=== PATIENT | female | born 1965 | race Caucasian/White ===

== ENCOUNTER → 2018-09-28 | Outpatient (CLI) | payer BC ==
--- NOTE | 2018-10-04 10:54 | MM ---
Reason for exam: screening (asymptomatic). Last mammogram was performed 1 year and 1 month ago. History: Patient is postmenopausal. Physical Findings: A clinical breast exam by your physician is recommended on an annual basis and results should be correlated with mammographic findings. MG 3D Screening Mammo W/Cad Bilateral CC and MLO view(s) were taken. Prior study comparison: August 24, 2017, bilateral MG 3d screening mammo w/cad. July 17, 2016, bilateral MG screening mammo w CAD. The breast tissue is heterogeneously dense. This may lower the sensitivity of mammography. No suspicious abnormality. No significant changes when compared with prior studies. ASSESSMENT: Negative, BI-RAD 1 RECOMMENDATION: Routine screening mammogram of both breasts in 1 year.
== END | disposition home or self-care (01) ==
LOC: RADMAMWWP 07:12
PROVIDERS: ATTEND Obstetrics & Gynecology
DX: Z12.31 Encounter for screening mammogram for malignant neoplasm of breast (principal)
CPT/HCPCS: 77063; 77067

== ENCOUNTER → 2019-09-27 | Outpatient (CLI) | payer BC ==
--- NOTE | 2019-09-27 13:06 | EST ---
EXERCISE STRESS DATE OF SERVICE: 09/27/2019 AGE: 53 SEX: Female HT: 5'0" WT: 130 PROTOCOL: Papa Cardiolite STAGE: III DURATION OF EXERCISE: 8-1/2 minutes HEART RATE REST: 64 BLOOD PRESSURE REST: 151/90 MAXIMUM HEART RATE ACHIEVED: 149 MAXIMUM BLOOD PRESSURE: 167/78 85% MPHR: 144 100% MPHR: 169 METS: 9.1 INDICATIONS: Chest pain. CLINICAL INFORMATION: Baseline EKG revealed normal sinus rhythm with nonspecific ST abnormality in inferolateral leads. Patient walked for 8-1/2 minutes achieved a maximal heart rate of 149 beats per minute which is more than 85% of predicted maximal. Developed fatigue and shortness of breath. More prominent ST-segment changes were noted, but these are considered inconclusive findings because of resting changes and LVH. The patient did not have angina. There was no arrhythmia. By EKG criteria, this is an inconclusive stress test with fair exercise capacity. The nuclear scan results which are more pertinent, will be reported by the radiologist. MMSHARIFL / IJN: [id number] /
--- NOTE | 2019-09-27 13:11 | NM ---
EXAMINATION TYPE: NM stress cardiolite complete DATE OF EXAM: 09/27/2019 COMPARISON: NONE HISTORY: Chest pain TECHNIQUE: After the intravenous administration of 10 mCi Tc 99m Sestamibi - Rest images obtained 50 minutes post injection. The patient exercised using a ROSELYN protocol and 1 minute prior to peak ex ercise was injected with 28.1 mCi Tc 99m Sestamibi - Stress images obtained 50 minutes post injection . FINDINGS: Targeted heart rate was achieved during performance of the study. Review of stress and rest SPECT ciarra ges demonstrates no distinct perfusion abnormality. Gated analysis shows paradoxical apical septal w all motion with an estimated left ventricular ejection fraction of 66 %. IMPRESSION: No scintigraphic evidence for reversible ischemia. Correlate with echo for possible wall motion abnor mality, elevated ejection fraction
== END | disposition home or self-care (01) ==
LOC: RADNMMAIN 08:26
PROVIDERS: ATTEND Internal Medicine
DX: R07.9 Chest pain, unspecified (principal)
CPT/HCPCS: 93017; 78452; A9500

== ENCOUNTER → 2019-10-05 | Outpatient (CLI) | payer BC ==
--- NOTE | 2019-10-05 13:13 | MM ---
Reason for exam: screening (asymptomatic). Last mammogram was performed 1 year ago. History: Patient is postmenopausal. Physical Findings: A clinical breast exam by your physician is recommended on an annual basis and results should be correlated with mammographic findings. MG Screening Mammo w CAD Bilateral CC and MLO view(s) were taken. Prior study comparison: September 28, 2018, bilateral MG 3d screening mammo w/cad. August 24, 2017, bilateral MG 3d screening mammo w/cad. The breast tissue is heterogeneously dense. This may lower the sensitivity of mammography. Focal asymmetry left lower inner quadrant posterior. This finding is changed when compared with previous exams. ASSESSMENT: Incomplete: need additional imaging evaluation, BI-RAD 0 RECOMMENDATION: Special view mammogram of the left breast. If lesion persists on supplemental views, image directed ultrasound is recommended. [facility] will attempt to contact patient to return for supplemental views and ultrasound if indicated.
== END | disposition home or self-care (01) ==
LOC: RADMAMWWP 07:24
PROVIDERS: ATTEND Obstetrics & Gynecology
DX: Z12.31 Encounter for screening mammogram for malignant neoplasm of breast (principal)
CPT/HCPCS: 77067

== ENCOUNTER → 2019-10-21 | Outpatient (CLI) | payer BC ==
--- NOTE | 2019-10-21 09:53 | MM ---
Reason for exam: additional evaluation requested from abnormal screening. Last mammogram was performed 1 month ago. History: Patient is postmenopausal. Physical Findings: Nurse did not find any significant physical abnormalities on exam. MG 3D Work Up W/Cad LT Spot compression CC, spot compression MLO, and LM view(s) were taken of the left breast. Prior study comparison: October 05, 2019, bilateral MG screening mammo w CAD. September 28, 2018, bilateral MG 3d screening mammo w/cad. The breast tissue is heterogeneously dense. This may lower the sensitivity of mammography. The previously seen abnormality resolves on additional views and appears as fibroglandular tissue compatible with summation. These results were verbally communicated with the patient and result sheet given to the patient on 10/21/19. ASSESSMENT: Negative, BI-RAD 1 RECOMMENDATION: Return to routine screening mammogram schedule for both breasts.
== END | disposition home or self-care (01) ==
LOC: RADMAMWWP 08:52
PROVIDERS: ATTEND Obstetrics & Gynecology
DX: R92.8 Other abnormal and inconclusive findings on diagnostic imaging of breast (principal)
CPT/HCPCS: 77061; 77065

== ENCOUNTER → 2020-09-07 | Outpatient (CLI) | payer BC ==
[2020-09-07 11:31] LABS: HCT 43.5 % (34.0-46.0); HGB 14.2 gm/dL (11.4-16.0); MCH 32.1 pg (25.0-35.0); MCHC 32.6 g/dL (31.0-37.0); MCV 98.5 fL (80.0-100.0); Mean Platelet Volume 7.1; Platelet Count 310 k/uL (150-450); RBC 4.42 m/uL (3.80-5.40); RDW 12.3 % (11.5-15.5); WBC 5.8 k/uL (3.8-10.6)
[2020-09-07 11:49] LABS: African American GFR (CKD) >90 (>60 ml/min/1.73 sqM); Anion Gap 9 mmol/L; Blood Urea Nitrogen 13 mg/dL (7-17); Carbon Dioxide 27 mmol/L (22-30); Chloride 100 mmol/L (98-107); Non-African American GFR(CKD) >90 (>60 ml/min/1.73 sqM); Potassium 4.3 mmol/L (3.5-5.1); Sodium 136 mmol/L (137-145)
== END | disposition home or self-care (01) ==
LOC: LABPAT 10:38
PROVIDERS: ATTEND Internal Medicine Interventional Cardiology
DX: Z01.818 Encounter for other preprocedural examination (principal); R06.02 Shortness of breath
CPT/HCPCS: 80051; 82565; 84520; 85027

== ENCOUNTER 2020-09-14 09:16 | Day surgery (SDC) | payer BC ==
[2020-09-13 11:33] VITALS: BMI 26.4
[~2020-09-14 09:16] MED LIST: ALPRAZolam 0.25 MG TAB PO PRN; ALPRAZolam 0.5 MG TAB PO PRN; ASPIRIN 325 MG TAB PO STA; ATORVASTATIN 80 MG TAB PO STA; NITROGLYCERIN SL TABS 0.4 MG TAB SUBLINGUAL PRN; SODIUM CHLORIDE 0.9% 1,000 ML in EMPTY BAG 1 BAG IV ONE
[2020-09-14 10:07] VITALS: RESP 18; TEMP 98.4
[2020-09-14] MEDS ORDERED: LIDOCAINE 1% INJ 10MG/ML (20 ML MDV) ONE (10:26)
[2020-09-14] MEDS ORDERED: VERAPAMIL 2.5 MG/ML 2 ML AMP ONE (10:26)
[2020-09-14] MEDS ORDERED: HEPARIN SODIUM 1,000 UN/ML (10ML VL) ONE (10:27)
[2020-09-14] MEDS: MIDAZOLAM 2 MG/2 ML VIAL IV ONE ×2 (10:36→10:43)
[2020-09-14] MEDS: LIDOCAINE 1% INJ 10MG/ML (20 ML MDV) SQ ONE ×2 (10:40→10:54)
[2020-09-14] MEDS ORDERED: HYDROmorphone 0.5 MG/0.5 ML SYRINGE IVP ONE (10:51)
[2020-09-14] MEDS ORDERED: fentaNYL (PF) 50 MCG/ML 2 ML AMP ONE (10:54)
[2020-09-14] MEDS ORDERED: fentaNYL (PF) 50 MCG/ML 2 ML AMP IV ONE (10:55)
[2020-09-14] MEDS ORDERED: IOPAMIDOL-370 100ML BTL INJ ONE (11:07)
[2020-09-14] MEDS ORDERED: SODIUM CHLORIDE 0.9% 1,000 ML IV SCH (11:15)
--- NOTE | 2020-09-14 13:16 | CC ---
CARDIAC CATHETERIZATION REPORT DATE OF SERVICE: September 14, 2020. PROCEDURE: Left heart catheterization and coronary angiography. PERFORMED BY: Dr. Senia Eduardo. SEDATION: Moderate conscious sedation time was 27 minutes. Patient was administered Versed. Oxygen saturation, hemodynamics and EKG were monitored closely. CLINICAL INFORMATION: Mrs. Ashleigh Bustos is a 54-year-old lady with a history of CAD, previous cardiac cath in 2013, which revealed noncritical CAD. Because of significant symptoms of angina, she came into the office complaining of pain even with [id number] activity and therefore she was advised cardiac cath after due discussion regarding risks, benefits, and options. PROCEDURE NOTE: Under local anesthesia and strict aseptic precautions, a 6-Icelandic introducer was advanced very carefully. I had some difficulty getting access from the right radial. I used a micropuncture technique. With this, I was able to advance the introducer but I could not advance the sheath because of severe spasm and therefore I took the sheath out and applied a TR band with good saturation of the fingers of 95%. I then turned my attention to the right femoral approach. Under local anesthesia and strict aseptic precautions, a 6-Icelandic introducer was placed in the right femoral artery with a micropuncture needle technique. Using standard Cathryn catheters, I performed coronary angiography and the same right catheter was used to check LV pressure but LV gram was not performed. The sheath was taken out and Angio-Seal device used to secure hemostasis. The patient was sent to the room in a stable condition. Findings were discussed with the patient and her . CARDIAC CATHETERIZATION FINDINGS: Left ventricular end-diastolic pressure was 10 mmHg without any gradient across the aortic valve. CORONARY ANGIOGRAPHY FINDINGS: RIGHT CORONARY ARTERY: Large dominant vessel. No significant disease, distally bifurcates into small PLV large PDA. No significant disease. Minor irregularities noted. LEFT MAIN CORONARY ARTERY: Short, patent vessel seems to be of the same caliber as the LAD and circumflex, but no significant disease. Bifurcates into LAD and circumflex. LEFT ANTERIOR DESCENDING CORONARY ARTERY: Good caliber vessel extends along the anterior wall. There is a narrowing of about 30% to 35% in the midportion gives off 2 diagonal branches, several septal branches, runs all the way to the apex supplies a sizable amount of myocardium. There is a 35% stenosis in the mid LAD noted which is similar to the previous finding from 2013. LEFT POSTERIOR CIRCUMFLEX CORONARY ARTERY: Nondominant vessel gives off a good-sized obtuse marginal that runs laterally and then the vessel runs in the AV groove has minor irregularities no significant disease. Left ventriculogram was not performed. FINAL IMPRESSION: This patient has a right dominant system. Normal filling pressures. No gradient across aortic valve, a 35% mid LAD lesion and no significant progression of disease compared to the previous cardiac cath from 2013. No significant disease in circumflex or RCA. Mid LAD of 35% narrowing. RECOMMENDATIONS: Findings were discussed with the patient and . Continued medical therapy with risk factor modification advised and patient will be discharged later on today if he remains stable. MMODL / IJN: [id number] /
[2020-09-14] MEDS ORDERED: ACETAMINOPHEN TAB 325 MG TAB ONE (14:50)
[2020-09-14 16:39] VITALS: BP 138/65; PULSE 60
== END 2020-09-14 16:43 | disposition home or self-care (01) ==
LOC: CATHCVL 09:16
PROVIDERS: ATTEND Internal Medicine Interventional Cardiology
DX: I25.111 Atherosclerotic heart disease of native coronary artery with angina pectoris with documented spasm (principal); R07.89 Other chest pain; R06.02 Shortness of breath; I49.9 Cardiac arrhythmia, unspecified; R94.39 Abnormal result of other cardiovascular function study; I10 Essential (primary) hypertension; E78.00 Pure hypercholesterolemia, unspecified; E78.5 Hyperlipidemia, unspecified; Z98.890 Other specified postprocedural states; Z79.899 Other long term (current) drug therapy; Z79.82 Long term (current) use of aspirin; Z82.49 Family history of ischemic heart disease and other diseases of the circulatory system
CPT/HCPCS: 93458; C1769 ×4; C1760; C1894 ×2; J2250; J2001; J3010; J1170; Q9967

== ENCOUNTER → 2020-10-19 | Outpatient (CLI) | payer BC ==
--- NOTE | 2020-10-22 09:57 | MM ---
Reason for exam: clinical finding. Last mammogram was performed 1 year ago. History: Patient is postmenopausal. Physical Findings: Nurse Summary: 1cm nodule in the right breast at 4 o'clock (nurse geovani). MG 3D Diag Mammo W/Cad BETTE Bilateral CC and MLO view(s) were taken. Prior study comparison: October 21, 2019, left breast MG 3d work up w/cad LT. October 05, 2019, bilateral MG screening mammo w CAD. There is no discrete abnormality including area of concern at palpable BB. These results were verbally communicated with the patient and result sheet given to the patient on 10/19/20. ASSESSMENT: Benign, BI-RAD 2 RECOMMENDATION: Follow-up diagnostic mammogram of the right breast in 6 months. Manage patient on a clinical basis.
--- NOTE | 2020-10-22 09:59 | USB ---
Reason for exam: clinical finding. History: Patient is postmenopausal. US Breast Limited RT Right limited breast ultrasound including focal area of concern, retroareolar and axilla demonstrates no cystic or solid lesion seen. These results were verbally communicated with the patient and result sheet given to the patient on 10/19/20. ASSESSMENT: Negative, BI-RAD 1 RECOMMENDATION: Follow-up diagnostic mammogram of the right breast in 6 months.
== END | disposition home or self-care (01) ==
LOC: RADMAMWWP 14:25
PROVIDERS: ATTEND Obstetrics & Gynecology
DX: N60.09 Solitary cyst of unspecified breast (principal); R92.8 Other abnormal and inconclusive findings on diagnostic imaging of breast
CPT/HCPCS: 77062; 77066

== ENCOUNTER 2021-07-22 22:24 | Emergency (ER) | payer BC ==
[2021-07-22 22:36] VITALS: TEMP 97.9
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
--- NOTE | 2021-07-22 23:46 | CT ---
EXAMINATION TYPE: CT brain cspine wo con DATE OF EXAM: 07/22/2021 COMPARISON: Fall. Pain. HISTORY: Fall CT DLP: 1002.6 mGycm Automated exposure control for dose reduction was used. Ventricles have normal size. There is no mass effect nor midline shift. There is no sign of intracran ial hemorrhage. Calvarium is intact. Skull base is intact. There is normal aeration of the mastoid si nuses. Cervical vertebra have normal alignment. There is slight narrowing of C5-6 disc space. Facet joints a re intact. There is no evidence of a fracture. Prevertebral soft tissues are intact. IMPRESSION: C5-6 mild degenerative disc changes. No fracture. Negative CT scan of the brain.
--- NOTE | 2021-07-23 00:06 | CT ---
EXAMINATION TYPE: CT facial bones wo con DATE OF EXAM: 07/22/2021 COMPARISON: None HISTORY: Fall Pain CT DLP: 1002.6 mGycm Automated exposure control for dose reduction was used. Mandibular ring appears intact. Temporomandibular joints are intact. The zygomatic arches appear norm al. Maxilla is intact. The nasal bone appears intact. There is no evidence of retro-orbital mass. The re is fairly normal aeration of the paranasal sinuses. There is no evidence of orbital blowout fractu re. Bony orbits are intact. IMPRESSION: Negative CT scan of the facial bones.
[2021-07-23 00:38] VITALS: BP 135/81; PULSE 66; RESP 16
== END 2021-07-23 00:38 | disposition home or self-care (01) ==
LOC: EC 22:24
DX: S06.0X9A Concussion with loss of consciousness of unspecified duration, initial encounter (principal); S70.12XA Contusion of left thigh, initial encounter; S70.11XA Contusion of right thigh, initial encounter; S09.93XA Unspecified injury of face, initial encounter; I10 Essential (primary) hypertension; E78.5 Hyperlipidemia, unspecified; I25.10 Atherosclerotic heart disease of native coronary artery without angina pectoris; Z79.899 Other long term (current) drug therapy; Z98.61 Coronary angioplasty status; W19.XXXA Unspecified fall, initial encounter
CPT/HCPCS: 70450; 70486; 72125; 99284

== ENCOUNTER → 2021-09-05 | Outpatient (CLI) | payer BC ==
--- NOTE | 2021-09-06 09:41 | XR ---
Right leg HISTORY: Pain, deep nonhealing wound anterior right ankle Frontal lateral views the right leg submitted on 4 images Bone mineralization, joint spaces, alignment are maintained. No periostitis. No radiopaque foreign yanni dy. Plantar calcaneus spur is noted. There is soft tissue swelling present. IMPRESSION: Soft tissue swelling
== END | disposition home or self-care (01) ==
LOC: RADXRMAIN 17:08
PROVIDERS: ATTEND Internal Medicine
DX: I73.9 Peripheral vascular disease, unspecified (principal); L97.909 Non-pressure chronic ulcer of unspecified part of unspecified lower leg with unspecified severity

== ENCOUNTER → 2021-11-27 | Outpatient (CLI) | payer BC ==
--- NOTE | 2021-11-28 09:33 | MM ---
Reason for exam: screening (asymptomatic). Last mammogram was performed 1 year and 1 month ago. History: Patient is postmenopausal. MG 3D Screening Mammo W/Cad Bilateral CC and MLO view(s) were taken. Prior study comparison: October 19, 2020, bilateral MG 3d diag mammo w/cad BETTE. October 21, 2019, left breast MG 3d work up w/cad LT. The breast tissue is heterogeneously dense. This may lower the sensitivity of mammography. Finding: There is increased, equal architectural distortion in the lower outer quadrant, anterior position of the right breast. New finding since October 19, 2020 and October 21, 2019. ASSESSMENT: Incomplete: need additional imaging evaluation, BI-RAD 0 RECOMMENDATION: Special view mammogram of the right breast. If lesion persists on supplemental views, image directed ultrasound is recommended. [facility] will attempt to contact patient to return for supplemental views and ultrasound if indicated.
== END | disposition home or self-care (01) ==
LOC: RADMAMWWP 07:27
PROVIDERS: ATTEND Obstetrics & Gynecology
DX: Z12.31 Encounter for screening mammogram for malignant neoplasm of breast (principal)
CPT/HCPCS: 77063; 77067

== ENCOUNTER → 2021-12-04 | Outpatient (CLI) | payer BC ==
--- NOTE | 2021-12-04 08:49 | MM ---
Reason for exam: additional evaluation requested from abnormal screening. Last mammogram was performed less than 1 month ago. History: Patient is postmenopausal. Physical Findings: Nurse did not find any significant physical abnormalities on exam. MG 3D Work Up W/Cad RT Spot compression LM, spot compression MLO, and LM view(s) were taken of the right breast. Prior study comparison: November 27, 2021, bilateral MG 3d screening mammo w/cad. October 19, 2020, bilateral MG 3d diag mammo w/cad BETTE. There is no discrete abnormality including area of concern. These results were verbally communicated with the patient and result sheet given to the patient on 12/04/21. ASSESSMENT: Negative, BI-RAD 1 RECOMMENDATION: Return to routine screening mammogram schedule for both breasts.
== END | disposition home or self-care (01) ==
LOC: RADMAMWWP 07:05
PROVIDERS: ATTEND Obstetrics & Gynecology
DX: R92.8 Other abnormal and inconclusive findings on diagnostic imaging of breast (principal)
CPT/HCPCS: 77061; 77065

== ENCOUNTER → 2022-04-25 | Outpatient (CLI) | payer BC ==
--- NOTE | 2022-04-27 11:16 | US ---
EXAMINATION TYPE: US kidneys/renal and bladder DATE OF EXAM: 04/25/2022 COMPARISON: CT 2016 CLINICAL HISTORY: R94.4 ABN KIDNEY FUNCTIONS. EXAM MEASUREMENTS: Right Kidney: 11.0 x 5.2 x 5.3 cm Left Kidney: 10.1 x 5.6 x 4.7 cm Right Kidney: No hydronephrosis or masses seen Left Kidney: No hydronephrosis or masses seen Bladder: wnl Bilateral Jets seen: yes There is no evidence for hydronephrosis at this point in time. No nephrolithiasis is seen. No koby s are identified. Cortical medullary differentiation is maintained. The urinary bladder is anechoic. Bilateral ureteral jets are seen. IMPRESSION: No significant abnormality is evident
== END | disposition home or self-care (01) ==
LOC: RADUSWWP 16:15
PROVIDERS: ATTEND Internal Medicine
DX: R94.4 Abnormal results of kidney function studies (principal)
CPT/HCPCS: 76770

== ENCOUNTER → 2022-12-05 | Outpatient (CLI) | payer BC ==
--- NOTE | 2022-12-08 08:14 | MM ---
Reason for Exam: Screening (asymptomatic). Last screening mammogram was performed 12 month(s) ago. Patient History: Menarche at age 14. First Full-Term at age 26. Hysterectomy at age 44. Postmenopausal. Risk Values: Sarai 5 year model risk: 1.1%. NCI Lifetime model risk: 7.4%. Prior Study Comparison: 10/19/2020 Bilateral Diagnostic Mammogram, [facility]. 11/27/2021 Bilateral Screening Mammogram, [facility]. 12/04/2021 Right Diagnostic Mammogram, [facility]. Tissue Density: The breast tissue is heterogeneously dense. This may lower the sensitivity of mammography. Findings: Analyzed By CAD. There is no suspicious group of microcalcifications or new suspicious mass in either breast. Overall Assessment: Negative, BI-RAD 1 Management: Screening Mammogram of both breasts in 1 year. A clinical breast exam by your physician is recommended on an annual basis and results should be correlated with mammographic findings. Electronically signed and approved by: Nehemias Davis D.O.
== END | disposition home or self-care (01) ==
LOC: RADMAMWWP 07:41
PROVIDERS: ATTEND Obstetrics & Gynecology
DX: Z12.31 Encounter for screening mammogram for malignant neoplasm of breast (principal); Z78.0 Asymptomatic menopausal state
CPT/HCPCS: 77063; 77067

== ENCOUNTER 2023-05-22 22:11 | Emergency (ER) | payer BC ==
[2023-05-22 22:15] VITALS: TEMP 98.2
[2023-05-22 22:53] LABS: Basophils % (A) 0 %; Eosinophils # (A) 0.2 k/uL (0-0.7); Eosinophils % (A) 2 %; HCT 36.6 % (34.0-46.0); HGB 12.8 gm/dL (11.4-16.0); Lymphocytes # (A) 1.5 k/uL (1.0-4.8); Lymphocytes % (A) 13 %; MCH 32.7 pg (25.0-35.0); MCHC 34.9 g/dL (31.0-37.0); MCV 93.7 fL (80.0-100.0); Mean Platelet Volume 8.6; Monocytes % (A) 8 %; Neutrophils # (A) 8.8 k/uL (1.3-7.7); Neutrophils % (A) 75 %; Platelet Count 234 k/uL (150-450); RBC 3.91 m/uL (3.80-5.40); RDW 12.6 % (11.5-15.5); WBC 11.8 k/uL (3.8-10.6)
[2023-05-22 23:08] LABS: ALT 20 U/L (4-34); African American GFR (CKD) >90 (>60 ml/min/1.73 sqM); Anion Gap 9 mmol/L; Blood Urea Nitrogen 10 mg/dL (7-17); Calcium 8.5 mg/dL (8.4-10.2); Carbon Dioxide 22 mmol/L (22-30); Chloride 101 mmol/L (98-107); Glucose 84 mg/dL (74-99); Lipase 206 U/L (23-300); Non-African American GFR(CKD) >90 (>60 ml/min/1.73 sqM); Sodium 132 mmol/L (137-145); Total Bilirubin 0.9 mg/dL (0.2-1.3)
[2023-05-22 23:19] LABS: Appearance,Urine Clear (Clear); Bilirubin,Urine Negative (Negative); Blood,Urine Negative (Negative); Color,Urine Yellow; Glucose,Urine (UA) Negative (Negative); Ketones,Urine Negative (Negative); Leukocyte Esterase,Urine Negative (Negative); Nitrite,Urine Negative (Negative); Protein,Urine Negative (Negative); Specific Gravity,Urine 1.008 (1.001-1.035); Urobilinogen,Urine <2.0 mg/dL (<2.0)
[2023-05-22 23:21] LABS: AST 50 U/L (14-36); Albumin 4.3 g/dL (3.5-5.0); Alkaline Phosphatase 44 U/L (38-126); Potassium 4.6 mmol/L (3.5-5.1); Total Protein 7.2 g/dL (6.3-8.2)
[2023-05-22] MEDS ORDERED: IBUPROFEN 600 MG TAB PO STA (23:36)
[2023-05-22] MEDS ORDERED: SODIUM CHLORIDE 0.9% 1,000 ML IV ONE (23:37)
[2023-05-22] MEDS ORDERED: ONDANSETRON 4 MG/2 ML VIAL IVP STA (23:37)
[2023-05-23] MEDS ORDERED: MORPHINE SULFATE 4 MG/ML SYRINGE IVP STA (01:07)
[2023-05-23] MEDS ORDERED: PIPERACILLIN-TAZOBACTAM 3.375 GM in SODIUM CHLORIDE 0.9% 100 ML IVPB STA (03:19)
--- NOTE | 2023-05-23 04:42 | CT ---
EXAMINATION TYPE: CT abdomen pelvis w con CT DLP: 783 mGycm, Automated exposure control for dose reduction was used. DATE OF EXAM: 05/23/2023 12:27 AM COMPARISON: CT abdomen pelvis most recent from 07/18/2016. CLINICAL INDICATION:Female, 57 years old with history of ab pain; TECHNIQUE: Axial CT of the abdomen and pelvis. Sagittal and coronal reformats were created on a [employer] workstation. Contrast used: 100 cc of Isovue 300 (none if empty) Oral contrast used: (none if empty) FINDINGS: LOWER CHEST: Unremarkable ABDOMEN LIVER: Unremarkable GALLBLADDER AND BILE DUCTS: Unremarkable. PANCREAS: Unremarkable. SPLEEN: Unremarkable. ADRENAL GLANDS: Unremarkable. KIDNEYS AND URETERS: No evidence of hydronephrosis or renal calculus. The ureters are unremarkable. PELVIS BLADDER: Unremarkable REPRODUCTIVE: Unremarkable. ABDOMEN & PELVIS STOMACH AND BOWEL: There are colonic diverticula present, one of which has adjacent fat stranding olivia nges. No organizing fluid collection or evidence of pneumoperitoneum. No evidence of bowel obstructio n. The appendix is normal. PERITONEUM/RETROPERITONEUM: No evidence of pneumoperitoneum or free fluid. VASCULATURE: No evidence of aortic aneurysm. MUSCULOSKELETAL: No acute osseous abnormalities LYMPH NODES: No gross evidence for lymphadenopathy. Nonenlarged adjacent lymph nodes to the area of s uspected colitis. SOFT TISSUE/ABDOMINAL WALL: Tiny fat-containing umbilical hernia. IMPRESSION: Acute uncomplicated colonic diverticulitis/colitis. Follow-up colonoscopy recommended after resolutio n of symptoms if not recently performed.
[2023-05-23] MEDS ORDERED: traMADol 50 MG STARTER PACK 3 TAB BTL PO STA (05:02)
--- NOTE | 2023-05-23 05:03 | ED ---
Abdominal Pain HPI - General Chief Complaint: Abdominal Pain Stated Complaint: Abd pain Time Seen by Provider: 05/22/23 22:15 Source: patient Mode of arrival: ambulatory Limitations: no limitations - History of Present Illness Initial Comments: 57-year-old female with past medical history of diverticulitis who presents to the emergency department with left lower quadrant abdominal pain. States his been going on for the past couple of days. Does have a history of diverticulitis and states that the pain feels similar. She called her primary care doctor who placed her on Cipro and Flagyl. States she has a hard time tolerating the Flagyl due to its side effects. States that she did take one dose earlier this morning. Continue to have pain throughout the day and decided to come into the emergency department for evaluation. Continues to have nausea without vomiting. No fevers. No diarrhea, black or bloody stools. Does admit to some constipation. No changes in her urination. No other alleviating, precipitating or modifying factors - Related Data Home Medications Medication Instructions Recorded Confirmed Atorvastatin [Lipitor] 40 mg PO HS 09/13/20 09/14/20 Calcium Carb/Magnesium Hydrox 1 each PO DAILY 09/13/20 09/14/20 [Rolaids Chewable Tablet] Cetirizine HCl [Zyrtec] 10 mg PO DAILY 09/13/20 09/14/20 Metoprolol Tartrate [Lopressor] 25 mg PO DAILY 09/13/20 09/14/20 Multivitamins, Thera [Multivitamin 1 tab PO DAILY 09/13/20 09/14/20 (formulary)] [place]-3 Fatty Acids [[place]-3] 1,000 mg PO DAILY 09/13/20 09/14/20 Previous Rx's Medication Instructions Recorded Amoxic-Pot Clav 875-125Mg 1 tab PO BID 1 Days #20 tab 05/23/23 [Augmentin 875-125] Ondansetron Odt [Zofran Odt] 4 mg PO Q8HR PRN #20 tab 05/23/23 Allergies Allergy/AdvReac Type Severity Reaction Status Date / Time No Known Allergies Allergy Verified 05/22/23 22:15 Review of Systems ROS Statement: Those systems with pertinent positive or pertinent negative responses have been documented in the HPI. ROS Other: All systems not noted in ROS Statement are negative. Past Medical History Past Medical History: Coronary Artery Disease (CAD), Hyperlipidemia, Hypertension Additional Past Medical History / Comment(s): Diverticulitits History of Any Multi-Drug Resistant Organisms: None Reported Past Surgical History: Heart Catheterization, Hysterectomy Additional Past Surgical History / Comment(s): COLONOSCOPY Past Anesthesia/Blood Transfusion Reactions: No Reported Reaction Past Psychological History: No Psychological Hx Reported Smoking Status: Never smoker Past Alcohol Use History: Occasional Past Drug Use History: None Reported - Past Family History Mother Family Medical History: No Reported History General Exam Limitations: no limitations General appearance: alert, in no apparent distress Head exam: Present: atraumatic, normocephalic, normal inspection Eye exam: Present: normal appearance, PERRL, EOMI. Absent: scleral icterus, conjunctival injection, periorbital swelling ENT exam: Present: normal exam, mucous membranes moist Neck exam: Present: normal inspection. Absent: tenderness, meningismus, lymphadenopathy Respiratory exam: Present: normal lung sounds bilaterally. Absent: respiratory distress, wheezes, rales, rhonchi, stridor Cardiovascular Exam: Present: regular rate, normal rhythm, normal heart sounds. Absent: systolic murmur, diastolic murmur, rubs, gallop, clicks GI/Abdominal exam: Present: soft, tenderness (Left lower quadrant pain), normal bowel sounds. Absent: distended, guarding, rebound, rigid Extremities exam: Present: normal inspection, full ROM, normal capillary refill. Absent: tenderness, pedal edema, joint swelling, calf tenderness Back exam: Present: normal inspection Neurological exam: Present: alert, oriented X3, CN II-XII intact Psychiatric exam: Present: normal affect, normal mood Skin exam: Present: warm, dry, intact, normal color. Absent: rash Course Vital Signs 05/22/23 05/22/23 05/23/23 22:12 23:13 00:34 Temperature 98.2 F Pulse Rate 78 76 76 Respiratory 18 16 18 Rate Blood Pressure 138/86 143/85 146/71 O2 Sat by Pulse 98 95 98 Oximetry 05/23/23 05/23/23 01:58 05:04 Temperature Pulse Rate 72 67 Respiratory 18 16 Rate Blood Pressure 111/69 114/62 O2 Sat by Pulse 95 97 Oximetry Medical Decision Making - Medical Decision Making Was pt. sent in by a medical professional or institution (, PA, INSERTING OPERATOR, urgent care, hospital, or half-way...) When possible be specific @ -No Did you speak to anyone other than the patient for history (EMS, parent, family, police, friend...)? What history was obtained from this source @ -No Did you review nursing and triage notes (agree or disagree)? Why? @ -I reviewed and agree with nursing and triage notes Were old charts reviewed (outside hosp., previous admission, EMS record, old E KG, old radiological studies, urgent care reports/EKG's, half-way records)? Report findings @ -No old charts were reviewed Differential Diagnosis (chest pain, altered mental status, abdominal pain women, abdominal pain men, vaginal bleeding, weakness, fever, dyspnea, syncope, headache, dizziness, GI bleed, back pain, seizure, CVA, palpatations, mental hea lth, musculoskeletal)? @ -Differential Abdominal Pain Women: Appendicitis, Cholecystitis, diverticulosis, ischemic bowel, pancreatitis, hepatitis, UTI, gastroenteritis, AAA, incarcerated hernia, bowel obstruction, constipation, inflammatory bowel, hepatitis, peptic ulcer disease, splenic infarction, perforated viscus, vulvitis, ovarian torsion, PID, kidney stone, placenta abruption, this is not meant to be an all-inclusive list EKG interpreted by me (3pts min.). @ -As above X-rays interpreted by me (1pt min.). @ -None done CT interpreted by me (1pt min.). @ -Yes and demonstrates mild diverticulitis U/S interpreted by me (1pt. min.). @ -None done What testing was considered but not performed or refused? (CT, X-rays, U/S, labs)? Why? @ -None What meds were considered but not given or refused? Why? @ -None Did you discuss the management of the patient with other professionals (professionals i.e. , PA, INSERTING OPERATOR, lab, RT, psych nurse, social services director, contact acid plant operator, teacher, special weapons and tactics officer, family independence case manager)? Give summary @ -No Was smoking cessation discussed for >3mins.? @ -No Was critical care preformed (if so, how long)? @ -No Were there social determinants of health that impacted care today? How? (Homelessness, low income, unemployed, alcoholism, drug addiction, transportation, low edu. Level, literacy, decrease access to med. care, retirement, rehab)? @ -No Was there de-escalation of care discussed even if they declined (Discuss DNR or withdrawal of care, Hospice)? DNR status @ -No What co-morbidities impacted this encounter? (DM, HTN, Smoking, COPD, CAD, Cancer, CVA, ARF, Chemo, Hep., AIDS, mental health diagnosis, sleep apnea, morbid obesity)? @ -Diverticulitis Was patient admitted / discharged? Hospital course, mention meds given and route, prescriptions, significant lab abnormalities, going to OR and other pertinent info. @ -Upon arrival patient was placed into room 17. History and physical exam was performed. IV access was established and laboratory studies were conducted. Patient was given a dose of morphine. CT is performed which demonstrates mild uncomplicated diverticulitis. Results are discussed with the patient. She wants to go home at this time. I will place her on Augmentin. Instructed to stop the Cipro and Flagyl as she is not tolerating the Flagyl. She'll be given a prescription for tramadol. Instructed to take only severe pain. Follow-up w ith her doctor in 2-4 days. Return for any new or worsening symptoms. Patient was agreeable to this plan and she was discharged home in stable condition Undiagnosed new problem with uncertain prognosis? @ -No Drug Therapy requiring intensive monitoring for toxicity (Heparin, Nitro, Insulin, Cardizem)? @ -No Were any procedures done? @ -No Diagnosis/symptom? @ -Acute left lower quadrant abdominal pain, acute uncomplicated mild diverticulitis Acute, or Chronic, or Acute on Chronic? @ -Acute Uncomplicated (without systemic symptoms) or Complicated (systemic symptoms)? @ -Complicated Side effects of treatment? @ -No Exacerbation, Progression, or Severe Exacerbation? @ -No Poses a threat to life or bodily function? How? (Chest pain, [place], [place], pneumonia, PE, COPD, DKA, ARF, appy, cholecystitis, CVA, Diverticulitis, Homicidal, Suicidal, threat to staff... and all critical care pts) @ -No - Lab Data Result diagrams: 05/22/23 22:42 05/22/23 22:42 Lab Results 05/22/23 05/22/23 05/22/23 Range/Units 22:42 22:42 22:42 WBC 11.8 H (3.8-10.6) k/uL RBC 3.91 (3.80-5.40) m/uL Hgb 12.8 (11.4-16.0) gm/dL Hct 36.6 (34.0-46.0) % MCV 93.7 (80.0-100.0) fL MCH 32.7 (25.0-35.0) pg MCHC 34.9 (31.0-37.0) g/dL RDW 12.6 (11.5-15.5) % Plt Count 234 (150-450) k/uL MPV 8.6 Neutrophils % 75 % Lymphocytes % 13 % Monocytes % 8 % Eosinophils % 2 % Basophils % 0 % Neutrophils # 8.8 H (1.3-7.7) k/uL Lymphocytes # 1.5 (1.0-4.8) k/uL Monocytes # 1.0 (0-1.0) k/uL Eosinophils # 0.2 (0-0.7) k/uL Basophils # 0.0 (0-0.2) k/uL Sodium 132 L (137-145) mmol/L Potassium 4.6 (3.5-5.1) mmol/L Chloride 101 (98-107) mmol/L Carbon Dioxide 22 (22-30) mmol/L Anion Gap 9 mmol/L BUN 10 (7-17) mg/dL Creatinine 0.44 L (0.52-1.04) mg/dL Est GFR (CKD-EPI)AfAm >90 (>60 ml/min/1.73 sqM) Est GFR (CKD-EPI)NonAf >90 (>60 ml/min/1.73 sqM) Glucose 84 (74-99) mg/dL Plasma Lactic Acid Nikhil 0.6 L (0.7-2.0) mmol/L Calcium 8.5 (8.4-10.2) mg/dL Total Bilirubin 0.9 (0.2-1.3) mg/dL AST 50 H (14-36) U/L ALT 20 (4-34) U/L Alkaline Phosphatase 44 (38-126) U/L Total Protein 7.2 (6.3-8.2) g/dL Albumin 4.3 (3.5-5.0) g/dL Lipase 206 (23-300) U/L Urine Color Urine Appearance (Clear) Urine pH (5.0-8.0) Ur Specific [place] (1.001-1.035) Urine Protein (Negative) Urine Glucose (UA) (Negative) Urine Ketones (Negative) Urine Blood (Negative) Urine Nitrite (Negative) Urine Bilirubin (Negative) Urine Urobilinogen (<2.0) mg/dL Ur Leukocyte Esterase (Negative) 05/22/23 Range/Units 23:09 WBC (3.8-10.6) k/uL RBC (3.80-5.40) m/uL Hgb (11.4-16.0) gm/dL Hct (34.0-46.0) % MCV (80.0-100.0) fL MCH (25.0-35.0) pg MCHC (31.0-37.0) g/dL RDW (11.5-15.5) % Plt Count (150-450) k/uL MPV Neutrophils % % Lymphocytes % % Monocytes % % Eosinophils % % Basophils % % Neutrophils # (1.3-7.7) k/uL Lymphocytes # (1.0-4.8) k/uL Monocytes # (0-1.0) k/uL Eosinophils # (0-0.7) k/uL Basophils # (0-0.2) k/uL Sodium (137-145) mmol/L Potassium (3.5-5.1) mmol/L Chloride (98-107) mmol/L Carbon Dioxide (22-30) mmol/L Anion Gap mmol/L BUN (7-17) mg/dL Creatinine (0.52-1.04) mg/dL Est GFR (CKD-EPI)AfAm (>60 ml/min/1.73 sqM) Est GFR (CKD-EPI)NonAf (>60 ml/min/1.73 sqM) Glucose (74-99) mg/dL Plasma Lactic Acid Nikhil (0.7-2.0) mmol/L Calcium (8.4-10.2) mg/dL Total Bilirubin (0.2-1.3) mg/dL AST (14-36) U/L ALT (4-34) U/L Alkaline Phosphatase (38-126) U/L Total Protein (6.3-8.2) g/dL Albumin (3.5-5.0) g/dL Lipase (23-300) U/L Urine Color Yellow Urine Appearance Clear (Clear) Urine pH 7.0 (5.0-8.0) Ur Specific [place] 1.008 (1.001-1.035) Urine Protein Negative (Negative) Urine Glucose (UA) Negative (Negative) Urine Ketones Negative (Negative) Urine Blood Negative (Negative) Urine Nitrite Negative (Negative) Urine Bilirubin Negative (Negative) Urine Urobilinogen <2.0 (<2.0) mg/dL Ur Leukocyte Esterase Negative (Negative) Disposition Clinical Impression: Abdominal pain, Diverticulitis Disposition: HOME SELF-CARE Condition: Stable Instructions (If sedation given, give patient instructions): Diverticulitis (ED) Additional Instructions: Alternate taking Motrin and Tylenol for pain. May take a tramadol if the pain is more severe. Start taking the antibiotics tomorrow. Use the nausea medications as needed. Take MiraLAX for smoother bowel movements. Return for any new or worsening symptoms Prescriptions: Amoxic-Pot Clav 875-125Mg [Augmentin 875-125] 1 tab PO BID 1 Days #20 tab Ondansetron Odt [Zofran Odt] 4 mg PO Q8HR PRN #20 tab PRN Reason: Nausea Is patient prescribed a controlled substance at d/c from ED?: No Referrals: Yoandy Arroyo MD [Primary Care Provider] - 1-2 days Time of Disposition: 05:06
[2023-05-23 05:06] VITALS: BP 114/62; PULSE 67; RESP 16
== END 2023-05-23 05:37 | disposition home or self-care (01) ==
LOC: EC 22:11
DX: K57.32 Diverticulitis of large intestine without perforation or abscess without bleeding (principal); I10 Essential (primary) hypertension; I25.10 Atherosclerotic heart disease of native coronary artery without angina pectoris; E78.5 Hyperlipidemia, unspecified; Z79.899 Other long term (current) drug therapy
CPT/HCPCS: 36415; 80053; 83605; 83690; 85025; 81003; 74177; 99284; 96365; 96375 ×2; 96361; J2543; J2270; J2405; Q9967

== ENCOUNTER → 2023-12-15 | Outpatient (CLI) | payer BC ==
--- NOTE | 2023-12-16 09:16 | MM ---
Reason for Exam: Screening (asymptomatic). Last mammogram was performed 1 year(s) and 1 month(s) ago. Patient History: Menarche at age 14. First Full-Term at age 26. Hysterectomy at age 44. Postmenopausal. Risk Values: Sarai 5 year model risk: 1.1%. NCI Lifetime model risk: 7.2%. Prior Study Comparison: 11/27/2021 Bilateral Screening Mammogram, [facility]. 12/04/2021 Right Diagnostic Mammogram, [facility]. 12/05/2022 Bilateral MG 3D screening mammo w/cad, [facility]. Tissue Density: The breast tissue is heterogeneously dense. This may lower the sensitivity of mammography. Findings: Analyzed By CAD. There is no suspicious group of microcalcifications or new suspicious mass in either breast. A benign calcifications. Overall Assessment: Benign, BI-RAD 2 Management: Screening Mammogram of both breasts in 1 year. . Patient should continue monthly self-breast exams. A clinical breast exam by your physician is recommended on an annual basis. This exam should not preclude additional follow-up of suspicious palpable abnormalities. Note on Sarai scores and lifetime risk: 1. A Sarai score greater than 3% is considered moderate risk. If this is the case, consider specialist referral to assess eligibility for a risk reducing agent. 2. If overall lifetime risk for the development of breast cancer is 20% or higher, the patient may qualify for future screening with alternating mammogram and breast MRI. Electronically signed and approved by: Luis Angel Miguel M.D. Radiologis
== END | disposition home or self-care (01) ==
LOC: RADMAMWWP 07:46
PROVIDERS: ATTEND Obstetrics & Gynecology
DX: Z12.31 Encounter for screening mammogram for malignant neoplasm of breast (principal); Z78.0 Asymptomatic menopausal state
CPT/HCPCS: 77063; 77067

== ENCOUNTER → 2024-04-22 | Outpatient (CLI) | payer BC ==
--- NOTE | 2024-04-24 17:35 | US ---
EXAMINATION TYPE: US liver DATE OF EXAM: 04/22/2024 COMPARISON: CT abdomen pelvis 05/23/2023 CLINICAL INDICATION: Female, 58 years old with history of R94.5 ABNORMAL RESULTS OF LIVER FUNCTION ST UDIES; Abn liver function test TECHNIQUE: Multiple sonographic images of the right upper quadrant are obtained. FINDINGS: EXAM MEASUREMENTS: Liver Length: 13.7 cm Gallbladder Wall: .3 cm CBD: .4 cm Right Kidney: 9.2 x 4.2 x 4.2 cm RETAIL LEASING AGENT NOTES: Pancreas: Obscured by bowel gas Liver: Increased attenuation Gallbladder: No stones seen Evidence for sonographic Paiz's sign: No CBD: wnl Right Kidney: No hydronephrosis or masses seen Pancreas is obscured by overlying bowel gas. Liver is slightly hyperechoic and heterogenous. No surfa ce nodularity identified. This appearance limits evaluation for small hepatic masses. No gross eviden ce of mass. No cholelithiasis, wall thickening or surrounding fluid. Negative sonographic Paiz's si gn. Common bile duct within normal limits. Right kidney shows no hydronephrosis, masses, or nephrolit hiasis. IMPRESSION: Findings suggest mild hepatic steatosis.
== END | disposition home or self-care (01) ==
LOC: RADUSWWP 07:44
PROVIDERS: ATTEND Internal Medicine
DX: R94.5 Abnormal results of liver function studies (principal)
CPT/HCPCS: 76705

== ENCOUNTER → 2024-06-16 | Outpatient (CLI) | payer BC | END | disposition home or self-care (01) | LOC: LABPRL 10:15 | PROVIDERS: ATTEND Internal Medicine | DX: Z00.00 Encounter for general adult medical examination without abnormal findings | CPT/HCPCS: 80053; 80061; 82306; 83036; 84443; 85025 ==

== ENCOUNTER → 2024-10-18 | Outpatient (CLI) | payer BC ==
[2024-10-18 15:51] LABS: Basophils # (A) 0.06 X 10*3/uL (0.00-0.10); Basophils % (A) 1.2 %; Eosinophils # (A) 0.07 X 10*3/uL (0.04-0.35); Eosinophils % (A) 1.4 %; HCT 40.5 % (37.2-46.3); HGB 13.3 g/dL (12.0-15.0); Lymphocytes # (A) 1.53 X 10*3/uL (0.90-5.00); Lymphocytes % (A) 29.6 %; MCH 30.9 pg (27.0-32.0); MCHC 32.8 g/dL (32.0-37.0); Mean Platelet Volume 10.5 FL (9.5-12.2); Monocytes # (A) 0.52 X 10*3/uL (0.20-1.00); Monocytes % (A) 10.1 %; NRBC Per 100 WBC 0 X 10*3/uL (0.00-0.01); Neutrophils # (A) 2.98 X 10*3/uL (1.80-7.70); Neutrophils % (A) 57.5 %; Platelet Count 310 X 10*3/uL (140-440); RBC 4.31 X 10*6/uL (4.10-5.20); RDW 13.2 % (11.5-14.5); WBC 5.17 X 10*3/uL (4.50-10.00)
[2024-10-18 16:02] LABS: BUN/Creat Ratio 18.17 Ratio (12.00-20.00); Blood Urea Nitrogen 10.9 mg/dL (9.0-27.0); Chloride 102 mmol/L (96-109); Chol/HDL Ratio 2.24 Ratio; Creatine Kinase 81 U/L (26-186); Glucose 87 mg/dL (70-110); LDL Cholesterol,Calculated 80.6 mg/dL (0.0-131.0); Potassium 5.1 mmol/L (3.5-5.5); Sodium 140 mmol/L (135-145); Testosterone <10.00 ng/dL (7.00-45.62); VLDL Calculation 17.52 mg/dL (5.00-40.00)
[2024-10-18 16:03] LABS: ALT 49 U/L (8-44); AST 42 U/L (13-35); Albumin 4.6 g/dL (3.8-4.9); Albumin/Globulin Ratio 1.84 Ratio (1.60-3.17); Alkaline Phosphatase 69 U/L (41-126); Calcium 9.5 mg/dL (8.7-10.3); Globulin 2.5 g/dL (1.6-3.3); Total Bilirubin 0.6 mg/dL (0.3-1.2); Total Protein 7.1 g/dL (6.2-8.2)
[2024-10-18 16:17] LABS: Estradiol <20.0 pg/mL
[2024-10-18 17:09] LABS: Appearance,Urine Clear (Clear); Bilirubin,Urine Negative (Negative); Blood,Urine Negative (Negative); Color,Urine Yellow (Yellow); Ketones,Urine Negative (Negative); Nitrite,Urine Negative (Negative); PH, Urine 7.5; Specific Gravity,Urine 1.014 (1.001-1.030); Urobilinogen,Urine 0.2 E.U./DL
== END | disposition home or self-care (01) ==
LOC: LABWHC1 08:07
PROVIDERS: ATTEND Internal Medicine
DX: S00.86XA Insect bite (nonvenomous) of other part of head, initial encounter (principal); N95.1 Menopausal and female climacteric states; E78.2 Mixed hyperlipidemia; E55.9 Vitamin D deficiency, unspecified; K57.30 Diverticulosis of large intestine without perforation or abscess without bleeding; M81.0 Age-related osteoporosis without current pathological fracture; R73.01 Impaired fasting glucose; X58.XXXA Exposure to other specified factors, initial encounter
CPT/HCPCS: 36415; 80053; 80061; 81003; 82306; 82550; 82670; 83001; 83002; 83036; 84144; 84146; 84403; 84443; 85025; 86618

== ENCOUNTER → 2024-11-22 | Outpatient (CLI) | payer BC ==
--- NOTE | 2024-11-22 22:40 | MR ---
EXAMINATION TYPE: MR liver wo/w con DATE OF EXAM: 11/22/2024 10:04 PM INDICATION: Patient age:Female; 59 years old; Reason for study: R74.01; [facility]. COMPARISON: Ultrasound liver 04/22/2024, CT abdomen and pelvis 07/18/2016 TECHNIQUE: Multiplanar multi-sequence imaging was performed without and with IV contrast. The patie nt was given 6 ccs of Gadobutrol intravenously and dynamic imaging was performed. Post IV contrast jerome btraction images were also submitted for review. FINDINGS: LOWER CHEST: Mild cardiomegaly. Elevation of the right hemidiaphragm. ABDOMEN Liver: Noncirrhotic morphology. No focal lesion. No dropout of signal on out of phase imaging to sugg est fatty infiltration. Gallbladder and Bile ducts: Single 4 mm gallstone within the gallbladder fundus. No wall thickening o r surrounding inflammatory changes. No biliary duct dilatation. Pancreas: Unremarkable. Spleen: Unremarkable. Adrenal glands: Unremarkable. Kidneys: Unremarkable. Stomach and Bowel: No evidence for bowel obstruction. Scattered distal colonic diverticulosis. Peritoneum: No evidence of pneumoperitoneum, free fluid, or adenopathy. Vasculature: Unremarkable. No aortic aneurysm. Portal venous system is patent. Abdominal wall: Unremarkable. Musculoskeletal: The osseous structures appear intact. IMPRESSION: 1. No evidence of abdominal mass. 2. Unremarkable appearance of the liver. 3. Cholelithiasis. 4. Colonic diverticulosis. [facility], , 11/22/2024 10:38 PM
== END | disposition home or self-care (01) ==
LOC: RADMRIMAIN 21:30
PROVIDERS: ATTEND Internal Medicine
DX: K80.20 Calculus of gallbladder without cholecystitis without obstruction (principal); K57.30 Diverticulosis of large intestine without perforation or abscess without bleeding; R74.01 Elevation of levels of liver transaminase levels
CPT/HCPCS: 74183; A9585

== ENCOUNTER → 2025-01-09 | Outpatient (CLI) | payer BC ==
--- NOTE | 2025-01-09 12:44 | BD ---
EXAMINATION TYPE: Axial Bone Density DATE OF EXAM: 01/09/2025 CLINICAL HISTORY: 59 years old Female. ICD-10 CODE: M85.851 OSTEOPENIA R HIP , Additional History: Height: 59 Weight: 144.2 FRAX RISK QUESTIONS: Alcohol (3 or more units per day): no Family History (Parent hip fracture): no Glucocorticoids (More than 3mos): no (Ex: prednisone, prednisolone, methylprednisolone, dexamethasone, and hydrocortisone). History of Fracture in Adulthood: no Secondary Osteoporosis: 1. Type 1 Diabetes: no 2. Hyperthyroidism: no 3. Menopause before 45: no 4. Malnutrition: no 5. Chronic liver disease: no Rheumatoid Arthritis: no Current Tobacco Use: no RISK FACTORS HISTORY OF: Hip Fracture (Right/Left): no Spine Fracture: no History of Wrist Fracture: no Surgery to Spine/Hip(right/left)/Wrist (right/left): no MEDICATIONS: Thyroid Medications:no Osteoporosis Medications: no EXAM MEASUREMENTS: Bone mineral densitometry was performed using the [employer] System. Bone mineral density as measured about the Lumbar spine is: ----- L1-L4(G/cm2): 1.273 T Score Values are as follows: ----- L1: 0.9 ----- L2: 0.5 ----- L3: 0.8 ----- L4: 0.8 ----- L1-L4: 0.8 Z Score Values are as follows: ----- L1: 1.9 ----- L2: 1.4 ----- L3: 1.8 ----- L4: 1.7 ----- L1-L4: 1.7 Baseline Study Bone mineral density about the R hip (g/cm2): 1.058 Bone mineral density about the L hip (g/cm2): 1.100 T Score values are as follows: -----R Neck: -0.1 -----L Neck: 0.1 -----R Total: 0.4 -----L Total: 0.7 Z Score values are as follows: -----R Neck: 1.0 -----L Neck: 1.2 -----R Total: 1.2 -----L Total: 1.5 Baseline Study FRAX%s: The graph provided illustrates a 5.5% chance for a major osteoporotic fx and a 0.1% chance fo r the hips probability for fx in 10 years time. IMPRESSION: Normal (Values between +1 and -1 indicate normal bone mass). Consider repeating this study in 5 year s or sooner if there is some new clinical indication. NOTE: T-SCORE=SD OF THE YOUNG ADULT MEAN. [facility], , 01/09/2025 12:41 PM
--- NOTE | 2025-01-09 18:26 | NM ---
EXAMINATION TYPE: NM hepatobiliary w EF DATE OF EXAM: 01/09/2025 4:33 PM COMPARISON: Ultrasound most recent 04/22/2024 MRI 11/22/2024 CLINICAL INDICATION:Female, 59 years old with history of K80.20 Calculus of gallbladder; TECHNIQUE: The patient was given 4.8 mCi of Technetium 99m-Mebrofenin as a radiotracer and multiple scintigraphic images were obtained of the abdomen. Gallbladder function was also assessed after the a dministration ensure drink and additional scintigraphic images were obtained of the abdomen. A region of interest was drawn over the gallbladder and a timing activity curve was generated. The gallbladde r ejection fraction was calculated. FINDINGS: Normal uptake of radiotracer was identified within the liver with excretion into the hepatic and comm on biliary ducts within 8 min. There was normal progressive washout of the liver over the course of t he study. Radiotracer uptake within the gallbladder at 42 minutes as well as small bowel activity was identified at 16 minutes. Maximum calculated gallbladder ejection fraction is: 69% at 30 minutes (Normal gallbladder ejection fraction is > 35%) IMPRESSION: 1. Normal hepatobiliary scan. 2. Normal ejection fraction. [facility], , 01/09/2025 6:24 PM
== END | disposition home or self-care (01) ==
LOC: RADBDWWP 08:15
PROVIDERS: ATTEND Internal Medicine
DX: K80.20 Calculus of gallbladder without cholecystitis without obstruction (principal); M85.851 Other specified disorders of bone density and structure, right thigh
CPT/HCPCS: 77080; 78226; A9537